=== PATIENT | male | born 1950 | race Caucasian/White ===

== ENCOUNTER → 2021-09-20 | Outpatient (CLI) | payer MEDICARE, BC ==
[~2021-09-20] MED LIST: ZOFRAN ODT 4 MG4 MG SL
== END ==
LOC: HEART CORB 08:53
DX: I25.10 Atherosclerotic heart disease of native coronary artery without angina pectoris (principal); R07.89 Other chest pain; R06.02 Shortness of breath; I10 Essential (primary) hypertension; E78.5 Hyperlipidemia, unspecified
CPT/HCPCS: 78452; A9502; J2785

== ENCOUNTER → 2022-02-11 | Outpatient (CLI) | payer MEDICARE, BC | LOC: HEART CORB 14:25 | DX: Z00.00 Encounter for general adult medical examination without abnormal findings (principal); I51.7 Cardiomegaly; I51.89 Other ill-defined heart diseases ==